=== PATIENT | male | born 1980 | race Hispanic/Latino ===

== ENCOUNTER 2020-09-01 14:13 | Inpatient (IN) | payer OTHER ==
--- NOTE | 2020-09-01 15:00 | Emergency Department Report ---
<JEANETTE LE - Last Filed: 09/01/20 19:41> ED General Adult HPI - General Chief complaint: Headache Stated complaint: DETOX Time Seen by Provider: 09/01/20 14:55 Source: patient Mode of arrival: Ambulatory Limitations: No Limitations - History of Present Illness Initial comments: pt is a 40 yo male who presents to the ED for medical clearance for a detox facility at [facility]. he denies any symptoms at at currently. he denies any n/v, fever, cough, sob, CP, no abd pain. states he needs detox from cocaine and alcohol. he states he used cocaine and alcohol this morning at 2 AM. states he has been to detox facility in the past. he denies any SI, HI, hallucinations. PMHx nephrolithiasis. no allergies to meds. - Related Data Home Medications Medication Instructions Recorded Confirmed Last Taken No Known Home Medications [No 09/02/20 09/02/20 Unknown Reported Home Medications] Allergies Allergy/AdvReac Type Severity Reaction Status Date / Time morphine Allergy Hives Verified 09/01/20 21:50 ED Review of Systems Comment: All other systems reviewed and negative ED Past Medical Hx - Past Medical History Previous Medical History?: Yes Hx Liver Disease: Yes Hx Kidney Stones: Yes - Surgical History Past Surgical History?: Yes Additional Surgical History: HERNIA, TITAINUM IN LOWER JAW, KIDNEY STONES - Medications Home Medications: Home Medications Medication Instructions Recorded Confirmed Last Taken Type No Known Home Medications [No 09/02/20 09/02/20 Unknown History Reported Home Medications] ED Physical Exam - General Limitations: No Limitations General appearance: alert, in no apparent distress - Head Head exam: Present: atraumatic, normocephalic - Eye Eye exam: Present: normal appearance - ENT ENT exam: Present: mucous membranes moist - Respiratory Respiratory exam: Present: normal lung sounds bilaterally. Absent: respiratory distress, wheezes, rales, rhonchi, stridor, chest wall tenderness, accessory muscle use, decreased breath sounds, prolonged expiratory - Cardiovascular Cardiovascular Exam: Present: regular rate, normal rhythm, normal heart sounds. Absent: systolic murmur, diastolic murmur, rubs, gallop - Neurological Exam Neurological exam: Present: alert, oriented X3 - Psychiatric Psychiatric exam: Present: normal affect, normal mood - Skin Skin exam: Present: warm, dry, intact ED Medical Decision Making - Lab Data Result diagrams: 09/01/20 15:23 09/01/20 15:23 - Medical Decision Making pt signed out to Maylin Aaron PA-C pending CT abd pelvis results and treatment ED Disposition Clinical Impression: Acute pyelonephritis, Hydronephrosis with renal calculous obstruction, Sepsis due to urinary tract infection, Acute left flank pain Disposition: OP ADMIT IP TO THIS HOSP Condition: Critical <MAYLIN AARON - Last Filed: 09/01/20 21:41> ED General Adult HPI - History of Present Illness Initial comments: I assumed care of the patient from my colleague Ms. Jeanette Le PA-C. Briefly the patient is a 40-year-old white male with a history of chronic recurrent kidney stones, chronic substance abuse who presented to the ED for medical clearance after presenting himself earlier the [facility] for detox from cocaine abuse, and was referred to the ED for medical clearance. Patient also complains of left flank pain and "dark urine" for the last 1 week intermittently. ED Medical Decision Making - Lab Data Result diagrams: 09/01/20 15:23 09/01/20 15:23 - Radiology Data Radiology results: report reviewed, [place] [address] Cat Scan Report Signed Patient: CHRISTIANO BRANDON MR#: [id number] 56 : 1980 Acct:[id number] Age/Sex: 40 / M ADM Date: 09/01/20 Loc: ED Attending Dr: Ordering Physician: GAGAN LOMBARDI Date of Service: 09/01/20 Procedure(s): CT abdomen pelvis wo con Accession Number(s): [id number] cc: GAGAN LOMBARDI CT ABDOMEN AND PELVIS WITHOUT CONTRAST INDICATION: hematuria, leukocytosis. TECHNIQUE: Axial CT images were obtained through the abdomen and pelvis without IV contrast. All CT scans at this location are performed using CT dose reduction for ALARA by means of automated exposure control. COMPARISON: None available. FINDINGS: LOWER CHEST: No significant abnormality. LIVER: Moderate decreased attenuation characteristic for steatosis with several small subcentimeter hypodense lesions likely representing cysts GALLBLADDER: No significant abnormality. BILE DUCTS: No significant abnormality. PANCREAS: No significant abnormality. SPLEEN: No significant abnormality. ADRENALS: No significant abnormality. RIGHT KIDNEY and URETER: Nonobstructing 2 mm right intrarenal stone. LEFT KIDNEY and URETER: Nonobstructing 7 mm left UPJ stone with mild to moderate hydronephrosis. 7 nonobstructing left intrarenal stones, largest of which measures 6 mm image 76. STOMACH and SMALL BOWEL: No significant abnormality. COLON: No significant abnormality. APPENDIX: No significant abnormality. PERITONEUM: No free fluid. No free air. No fluid collection. LYMPH NODES: No significant adenopathy. AORTA and ARTERIES: No significant abnormality. IVC and VEINS: No significant abnormality. URINARY BLADDER: No significant abnormality. REPRODUCTIVE ORGANS: No significant abnormality. ADDITIONAL FINDINGS: Small fat-containing left inguinal hernia. 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 Obstructing 7 mm left UPJ stone with moderate left hydronephrosis 2. Bilateral nephrolithiasis 3. Small fat-containing left inguinal hernia 4. Moderate hepatic steatosis Signer Name: Raza Hicks MD Signed: 09/01/2020 7:38 PM Workstation Name: [id number] Transcribed By: TL Dictated By: Raza Hicks MD Electronically Authenticated By: Raza Hicks MD Signed Date/Time: 09/01/201937 DD/ 33 TD/TT: - Medical Decision Making I assumed care of the patient from my colleague Ms. Jeanette Le PA-C. Briefly the patient is a 40-year-old white male with a history of chronic recurrent kidney stones, chronic substance abuse who presented to the ED for medical clearance after presenting himself earlier the [facility] for detox from cocaine abuse, and was referred to the ED for medical clearance. Patient also complains of left flank pain and "dark urine" for the last 1 week intermittently. In the ED, patient is alert and oriented x3 and is not in distress but appears to be in mild pain. Lab test results were reviewed and showed acute leukocytosis of 20,100, and urinalysis was significant for large hematuria and UTI, and positive for cocaine abuse. The rest of the lab test results are nonactionable. Patient received normal saline 1 L IV bolus initially x1, additionally patient also received another 1 L normal saline IV bolus. Patient was treated for pain with Toradol, also treated with Flomax and Rocephin. The abdomen pelvis CT scan without contrast showed obstructing 7 mm left UPJ stone with moderate left hydronephrosis, with bilateral nephrolithiasis. There is also small fat-containing left inguinal hernia and moderate hepatic steatosis. The patient's case was discussed with the ED attending physician Dr. Stanton who advised that the patient be admitted to the hospital for further evaluation as the patient will be having acute pyelonephritis and urosepsis. I therefore paged and discussed the patient's case with the hospitalist physician on-call Dr. Hackett who admitted the patient to the hospital for further evaluation. - Differential Diagnosis pyelonephritis; Urosepsis; Obstructing kidney stones; UTI ED Disposition Is pt being admited?: Yes Does the pt Need Aspirin: No Time of Disposition: 21:52 <AMARI STANTON III - Last Filed: 09/02/20 05:51> ED General Adult HPI - General PUI?: No ED Review of Systems ROS: Stated complaint: DETOX Other details as noted in HPI ED Course Vital Signs 09/01/20 09/01/20 09/02/20 14:48 22:38 00:18 Temperature 98.0 F 97.9 F Pulse Rate 92 H 71 Pulse Rate [ 71 Right Brachial] Respiratory 14 16 18 Rate Blood Pressure 124/72 Blood Pressure 117/62 [Right] O2 Sat by Pulse 95 97 97 Oximetry 09/02/20 09/02/20 01:32 04:37 Temperature 97.8 F 98.6 F Pulse Rate 71 59 L Pulse Rate [ Right Brachial] Respiratory 18 16 Rate Blood Pressure 114/58 108/60 Blood Pressure [Right] O2 Sat by Pulse 97 96 Oximetry - Reevaluation(s) Reevaluation #1: I reviewed the findings and management of this patient in real-time and I have personally seen and examined this patient and participated in the decision making for this patient with the midlevel. Patient is a 40-year-old male that presents emergency room with complaints of flank pain. Patient also presented for medical clearance for psychiatric admission. I examined patient. Patient's lung sounds are normal and clear. Patient's CV exam shows normal S1-S2. Patient has left CVA tenderness. Patient had a CT scan which shows a obstructing stone and hydronephrosis. Patient CT scan was reviewed. Patient's clinical findings are consistent with left flank pain, renal stone, septic stone and pyelonephritis. Patient found to have an elevated WBC. Patient's UA shows leukocyte esterases, WBCs and hematuria. I agree with the plan of care. I discussed all results with patient. I discussed plan of care with patient. Patient agrees with plan of care and admission. Patient to be admitted to the hospitalist service. 09/01/20 22:19 - Consultations Consultation #1: Hospitalist consulted for admission. Hospitalist to admit patient. 09/01/20 22:24 ED Medical Decision Making - Lab Data Result diagrams: 09/02/20 04:15 09/02/20 04:15 - Radiology Data Radiology results: report reviewed, image reviewed Critical Care Time: Yes Critical care time in (mins) excluding proc time.: 35 Critical care attestation.: If time is entered above; I have spent that time in minutes in the direct care of this critically ill patient, excluding procedure time. Critical Care Time: 35 MINUTES ED Disposition Is pt being admited?: Yes Does the pt Need Aspirin: No
[2020-09-01 15:56] LABS: Basophils # (Auto) 0.1 K/mm3 (0.0-0.1); Basophils % (Auto) 0.7 % (0.0-1.8); Eosinophils # (Auto) 0.1 K/mm3 (0.0-0.4); Eosinophils % (Auto) 0.5 % (0.0-4.3); Hematocrit 41.9 % (35.5-45.6); Hemoglobin 14.4 gm/dl (11.8-15.2); Lymphocytes # (Auto) 2.7 K/mm3 (1.2-5.4); Lymphocytes % (Auto) 13.2 % (13.4-35.0); Mean Corpuscular HGB Conc 34 % (32-34); Mean Corpuscular Volume 95 fl (84-94); Monocytes # (Auto) 0.8 K/mm3 (0.0-0.8); Monocytes % (Auto) 3.8 % (0.0-7.3); Platelet Count 313 K/mm3 (140-440); Red Blood Count 4.42 M/mm3 (3.65-5.03); Red Cell Distribution Width 12.7 % (13.2-15.2)
[2020-09-01 16:03] LABS: Alanine Aminotransferase 37 units/L (7-56); Albumin 4.5 g/dL (3.9-5); BUN/Creatinine Ratio 13; Blood Urea Nitrogen 16 mg/dL (9-20); Calcium 9.7 mg/dL (8.4-10.2); Hemolysis Index 15
[2020-09-01 17:11] LABS: Bilirubin,Urine NEG (Negative); Blood,Urine LG (Negative); Color,Urine Amber (Yellow); Mucus,Urine 3+ /HPF; Sperm,Urine FEW /HPF (NP)
[2020-09-01 17:34] LABS: Amphetamine Screen,Urine PRESUMPTIVE NEGATIVE; Benzodiazepines Screen,Urine PRESUMPTIVE NEGATIVE; Cannabinoid Screen,Urine PRESUMPTIVE NEGATIVE; Cocaine Screen,Urine PRESUMPTIVE POSITIVE; Methadone Screen,Urine PRESUMPTIVE NEGATIVE; Opiate Screen,Urine PRESUMPTIVE NEGATIVE
--- NOTE | 2020-09-01 19:43 | Cat Scan Report ---
CT ABDOMEN AND PELVIS WITHOUT CONTRAST INDICATION: hematuria, leukocytosis. TECHNIQUE: Axial CT images were obtained through the abdomen and pelvis without IV contrast. All CT scans at [facility] are performed using CT dose reduction for ALARA by means of automated exposure control. COMPARISON: None available. FINDINGS: LOWER CHEST: No significant abnormality. LIVER: Moderate decreased attenuation characteristic for steatosis with several small subcentimeter h ypodense lesions likely representing cysts GALLBLADDER: No significant abnormality. BILE DUCTS: No significant abnormality. PANCREAS: No significant abnormality. SPLEEN: No significant abnormality. ADRENALS: No significant abnormality. RIGHT KIDNEY and URETER: Nonobstructing 2 mm right intrarenal stone. LEFT KIDNEY and URETER: Nonobstructing 7 mm left UPJ stone with mild to moderate hydronephrosis. 7 no nobstructing left intrarenal stones, largest of which measures 6 mm image 76. STOMACH and SMALL BOWEL: No significant abnormality. COLON: No significant abnormality. APPENDIX: No significant abnormality. PERITONEUM: No free fluid. No free air. No fluid collection. LYMPH NODES: No significant adenopathy. AORTA and ARTERIES: No significant abnormality. IVC and VEINS: No significant abnormality. URINARY BLADDER: No significant abnormality. REPRODUCTIVE ORGANS: No significant abnormality. ADDITIONAL FINDINGS: Small fat-containing left inguinal hernia. 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 Obstructing 7 mm left UPJ stone with moderate left hydronephrosis 2. Bilateral nephrolithiasis 3. Small fat-containing left inguinal hernia 4. Moderate hepatic steatosis Signer Name: Raza Hicsk MD Signed: 09/01/2020 7:38 PM Workstation Name: [id number]
[2020-09-01] MEDS ORDERED: cefTRIAXone/NS 1 GM/50 ML 1 GM/50 ML BAG IV ONE (20:52)
[2020-09-01] MEDS ORDERED: SODIUM CHLORIDE 0.9% 1000 ML 1,000 ML IV ONE (20:52)
[2020-09-01] MEDS ORDERED: KETOROLAC 30 MG/1 ML INJ IV ONE (20:53)
[2020-09-01] MEDS ORDERED: TAMSULOSIN 0.4 MG CAP PO ONE (20:53)
[2020-09-01] MEDS ORDERED: ONDANSETRON 4 MG/2 ML INJ IV PRN ×2 (21:59→22:44)
[2020-09-01] MEDS ORDERED: ACETAMINOPHEN 325 MG TAB PO PRN ×3 (21:59→22:48)
[2020-09-01] MEDS ORDERED: MORPHINE 2 MG/1 ML INJ IV PRN (22:44)
--- NOTE | 2020-09-01 23:08 | History and Physical Report ---
History of Present Illness Date of examination: 09/01/20 Date of admission: 09/01/20 21:59 Chief complaint: Left flank pain History of present illness: Patient is a 40-year-old white male with history of cocaine use initially went to [facility] for detoxification, however he was sent to ED for medical clearance as he was also complaining of left flank pain. Upon further work-up with CT scan of the abdomen and pelvis, he was noted to have bilateral nephr olithiasis and left ureteropelvic junction stone with moderate hydronephrosis and hematuria and he is being admitted for further management. Patient denies any fever or chills. He denies any dysuria but does complain of dark urine. He denies any chest pain or shortness of breath Past History Past Medical History: No medical history Past Surgical History: No surgical history Social history: smoking, other (Cocaine use). denies: IV drug use Family history: hypertension (Mother) Medications and Allergies Allergies Allergy/AdvReac Type Severity Reaction Status Date / Time morphine Allergy Hives Verified 09/01/20 21:50 Active Meds: Active Medications Acetaminophen (Tylenol) 650 mg PO Q4H PRN PRN Reason: Pain MILD(1-3)/Fever >100.5/WELLS Hydromorphone HCl (Dilaudid) 0.25 mg IV Q4H PRN PRN Reason: Pain, Moderate (4-6) Sodium Chloride (Nacl 0.9% 1000 Ml) 1,000 mls @ 125 mls/hr IV DIRECT JOSE ANTONIO Ceftriaxone Sodium (Rocephin/Ns 1 Gm/50 Ml) 1 gm in 50 mls @ 100 mls/hr IV Q24HR JOSE ANTONIO; Protocol Ondansetron HCl (Zofran) 4 mg IV Q8H PRN PRN Reason: Nausea And Vomiting Ondansetron HCl (Zofran) 4 mg IV Q8H PRN PRN Reason: Nausea And Vomiting Oxycodone/Acetaminophen (Percocet 5/325) 1 tab PO Q6H PRN PRN Reason: Pain, Moderate (4-6) Sodium Chloride (Sodium Chloride Flush Syringe 10 Ml) 10 ml IV BID JOSE ANTONIO Sodium Chloride (Sodium Chloride Flush Syringe 10 Ml) 10 ml IV PRN PRN PRN Reason: LINE FLUSH Sodium Chloride (Sodium Chloride Flush Syringe 10 Ml) 10 ml IV BID JOSE ANTONIO Sodium Chloride (Sodium Chloride Flush Syringe 10 Ml) 10 ml IV PRN PRN PRN Reason: LINE FLUSH Review of Systems Constitutional: no weight loss, no fever, no chills, no fatigue, no weakness Ears, nose, mouth and throat: no ear pain, no sore throat, no headache Cardiovascular: no chest pain, no syncope, no shortness of breath, no high blood pressure Respiratory: no cough, no shortness of breath Gastrointestinal: diarrhea (Had 2 or 3 bowel movements this morning), no abdominal pain, no nausea, no vomiting, no hematemesis, no BRBPR, no melena Genitourinary Male: no dysuria, no hematuria Rectal: no pain Musculoskeletal: no neck stiffness Integumentary: no rash Psychiatric: no anxiety, no depression Exam - Constitutional Vitals: Temp Pulse Resp BP Pulse Ox 97.9 F 71 16 117/62 97 09/01/20 22:38 09/01/20 22:38 09/01/20 22:38 09/01/20 22:38 09/01/20 22:38 General appearance: Present: no acute distress, well-nourished - EENT Eyes: Present: PERRL, EOM intact ENT: hearing intact, clear oral mucosa - Neck Neck: Present: supple, normal ROM. Absent: masses or JVD - Respiratory Respiratory effort: normal Respiratory: bilateral: CTA - Cardiovascular Rhythm: regular Heart Sounds: Present: S1 & S2 - Extremities Extremities: No edema - Abdominal General gastrointestinal: Present: soft, tender (Mildly tender in the left mid a bdomen), non-distended Male genitourinary: Present: deferred - Rectal Rectal Exam: deferred - Integumentary Integumentary: Present: clear - Musculoskeletal Musculoskeletal: strength equal bilaterally, other (Left flank tenderness) - Psychiatric Psychiatric: appropriate mood/affect - Neurologic Neurologic: no focal deficits Results - Labs CBC & Chem 7: 09/01/20 15:23 09/01/20 15:23 Labs: Abnormal lab results 09/01/20 09/01/20 09/01/20 Range/Units 15:23 15:23 15:23 WBC 20.1 H (4.5-11.0) K/mm3 MCV 95 H (84-94) fl MCH 33 H (28-32) pg RDW 12.7 L (13.2-15.2) % Lymph % (Auto) 13.2 L (13.4-35.0) % Seg Neutrophils % 81.8 H (40.0-70.0) % Seg Neutrophils # 16.5 H (1.8-7.7) K/mm3 Glucose 113 H (75-100) mg/dL Magnesium (1.7-2.3) mg/dL Total Creatine Kinase (55-170) units/L Urine WBC (Auto) (0.0-6.0) /HPF Salicylates < 0.3 L (2.8-20.0) mg/dL Acetaminophen (10.0-30.0) ug/mL 09/01/20 09/01/20 09/01/20 Range/Units 15:23 15:23 16:28 WBC (4.5-11.0) K/mm3 MCV (84-94) fl MCH (28-32) pg RDW (13.2-15.2) % Lymph % (Auto) (13.4-35.0) % Seg Neutrophils % (40.0-70.0) % Seg Neutrophils # (1.8-7.7) K/mm3 Glucose (75-100) mg/dL Magnesium 2.40 H (1.7-2.3) mg/dL Total Creatine Kinase 394 H (55-170) units/L Urine WBC (Auto) 18.0 H (0.0-6.0) /HPF Salicylates (2.8-20.0) mg/dL Acetaminophen 5.0 L (10.0-30.0) ug/mL Assessment and Plan - Patient Problems (1) Neutrophilic leukocytosis Current Visit: Yes Status: Acute Plan to address problem: Secondary to UTI/pyelonephritis No evidence of sepsis Continue IV antibiotic Blood and urine cultures obtained Monitor CBC (2) Acute left flank pain Current Visit: Yes Status: Acute Plan to address problem: Secondary to nephrolithiasis Rule out acute pyelonephritis CT scan of the abdomen and pelvis results reviewed Patient has bilateral nephrolithiasis with moderate left hydronephrosis IV fluids with normal saline Pain control IV antibiotics (3) Acute pyelonephritis Current Visit: Yes Status: Acute Plan to address problem: UA results reviewed Urine cultures obtained Continue IV ceftriaxone CT scan of the abdomen and pelvis results reviewed It does not show any perinephric stranding (4) Hydronephrosis with renal calculous obstruction Current Visit: Yes Status: Acute Plan to address problem: IV fluids 2/2 Left ureteropelvic junction stone Pain control Please consult urology in a.m.
[2020-09-02] MEDS: HYDROmorphone 1 MG/1 ML INJ IV PRN ×2 (00:33→04:39)
[2020-09-02] MEDS: SODIUM CHLORIDE 0.9% 1000 ML 1,000 ML IV SCH ×2 (01:48→09:54)
[2020-09-02 05:23] LABS: Basophils % (Auto) 0.3 % (0.0-1.8); Eosinophils # (Auto) 0.4 K/mm3 (0.0-0.4); Eosinophils % (Auto) 3.9 % (0.0-4.3); Hematocrit 37.4 % (35.5-45.6); Lymphocytes # (Auto) 3.1 K/mm3 (1.2-5.4); Lymphocytes % (Auto) 32.6 % (13.4-35.0); Mean Corpuscular HGB Conc 35 % (32-34); Mean Corpuscular Volume 94 fl (84-94); Monocytes # (Auto) 0.6 K/mm3 (0.0-0.8); Monocytes % (Auto) 6.4 % (0.0-7.3); Platelet Count 248 K/mm3 (140-440); Red Blood Count 3.96 M/mm3 (3.65-5.03); Red Cell Distribution Width 12.8 % (13.2-15.2)
[2020-09-02 05:37] LABS: BUN/Creatinine Ratio 14; Blood Urea Nitrogen 15 mg/dL (9-20); Calcium 8.6 mg/dL (8.4-10.2); Hemolysis Index 9
[2020-09-02] MEDS: cefTRIAXone/NS 1 GM/50 ML 1 GM/50 ML BAG IV SCH (09:57)
[2020-09-02] MEDS: oxyCODONE /ACETAMINOPHEN 5-325MG TAB PO PRN ×2 (10:54→20:24)
--- NOTE | 2020-09-02 12:44 | Progress Note ---
Assessment and Plan Assessment and plan: -- Neutrophilic leukocytosis Current Visit: Yes Status: Acute Plan to address problem: Secondary to UTI/pyelonephritis No evidence of sepsis Continue IV antibiotic Blood and urine cultures obtained Monitor CBC --Acute left flank pain Current Visit: Yes Status: Acute Plan to address problem: Secondary to nephrolithiasis Rule out acute pyelonephritis CT scan of the abdomen and pelvis results reviewed Patient has bilateral nephrolithiasis with moderate left hydronephrosis IV fluids with normal saline Pain control IV antibiotics -- Acute pyelonephritis Current Visit: Yes Status: Acute Plan to address problem: UA results reviewed Urine cultures obtained Continue IV ceftriaxone CT scan of the abdomen and pelvis results reviewed It does not show any perinephric stranding --Hydronephrosis with renal calculous obstruction Current Visit: Yes Status: Acute Plan to address problem: IV fluids 2/2 Left ureteropelvic junction stone Pain control Please consult urology in a.m. Hospitalist Physical - Constitutional Vitals: Temp Pulse Resp BP Pulse Ox 98.6 F 59 L 16 108/60 96 09/02/20 04:37 09/02/20 04:37 09/02/20 04:37 09/02/20 04:37 09/02/20 04:37 General appearance: Present: no acute distress, well-nourished Results - Labs CBC & Chem 7: 09/02/20 04:15 09/02/20 04:15 Labs: Laboratory Last Values WBC 9.5 K/mm3 (4.5-11.0) 09/02/20 04:15 RBC 3.96 M/mm3 (3.65-5.03) 09/02/20 04:15 Hgb 13.0 gm/dl (11.8-15.2) 09/02/20 04:15 Hct 37.4 % (35.5-45.6) 09/02/20 04:15 MCV 94 fl (84-94) 09/02/20 04:15 MCH 33 pg (28-32) H 09/02/20 04:15 MCHC 35 % (32-34) H 09/02/20 04:15 RDW 12.8 % (13.2-15.2) L 09/02/20 04:15 Plt Count 248 K/mm3 (140-440) 09/02/20 04:15 Lymph % (Auto) 32.6 % (13.4-35.0) 09/02/20 04:15 Cole % (Auto) 6.4 % (0.0-7.3) 09/02/20 04:15 Eos % (Auto) 3.9 % (0.0-4.3) 09/02/20 04:15 Baso % (Auto) 0.3 % (0.0-1.8) 09/02/20 04:15 Lymph # (Auto) 3.1 K/mm3 (1.2-5.4) 09/02/20 04:15 Cole # (Auto) 0.6 K/mm3 (0.0-0.8) 09/02/20 04:15 Eos # (Auto) 0.4 K/mm3 (0.0-0.4) 09/02/20 04:15 Baso # (Auto) 0.0 K/mm3 (0.0-0.1) 09/02/20 04:15 Seg Neutrophils % 56.8 % (40.0-70.0) 09/02/20 04:15 Seg Neutrophils # 5.4 K/mm3 (1.8-7.7) 09/02/20 04:15 Sodium 142 mmol/L (137-145) 09/02/20 04:15 Potassium 3.7 mmol/L (3.6-5.0) 09/02/20 04:15 Chloride 108.1 mmol/L (98-107) H 09/02/20 04:15 Carbon Dioxide 26 mmol/L (22-30) 09/02/20 04:15 Anion Gap 12 mmol/L 09/02/20 04:15 BUN 15 mg/dL (9-20) 09/02/20 04:15 Creatinine 1.1 mg/dL (0.8-1.3) 09/02/20 04:15 Estimated GFR > 60 ml/min 09/02/20 04:15 BUN/Creatinine Ratio 14 % 09/02/20 04:15 Glucose 117 mg/dL (75-100) H 09/02/20 04:15 Calcium 8.6 mg/dL (8.4-10.2) 09/02/20 04:15 Magnesium 2.40 mg/dL (1.7-2.3) H 09/01/20 15:23 Total Bilirubin 0.40 mg/dL (0.1-1.2) 09/01/20 15:23 AST 26 units/L (5-40) 09/01/20 15:23 ALT 37 units/L (7-56) 09/01/20 15:23 Alkaline Phosphatase 64 units/L (35-129) 09/01/20 15:23 Total Creatine Kinase 394 units/L (55-170) H 09/01/20 15:23 Total Protein 7.4 g/dL (6.3-8.2) 09/01/20 15: Albumin 4.5 g/dL (3.9-5) 09/01/20 15: Albumin/Globulin Ratio 1.6 % 09/01/20 15:23 Urine Color Coby (Yellow) 09/01/20 16:28 Urine Turbidity Slightly-cloudy (Clear) 09/01/20 16: Urine pH 5.0 (5.0-7.0) 09/01/20 16:28 Ur Specific [place] 1.026 (1.003-1.030) 09/01/20 16:28 Urine Protein 30 mg/dl mg/dL (Negative) 09/01/20 16:28 Urine Glucose (UA) Neg mg/dL (Negative) 09/01/20 16:28 Urine Ketones Neg mg/dL (Negative) 09/01/20 16:28 Urine Blood Lg (Negative) 09/01/20 16:28 Urine Nitrite Neg (Negative) 09/01/20 16:28 Urine Bilirubin Neg (Negative) 09/01/20 16:28 Urine Urobilinogen 2.0 mg/dL (<2.0) 09/01/20 16:28 Ur Leukocyte Esterase Tr (Negative) 09/01/20 16:28 Urine WBC (Auto) 18.0 /HPF (0.0-6.0) H 09/01/20 16:28 Urine RBC (Auto) 168.0 /HPF (0.0-6.0) 09/01/20 16: U Epithel Cells (Auto) < 1.0 /HPF (0-13.0) 09/01/20 16:28 Urine Mucus 3+ /HPF 09/01/20 16:28 Urine Yeast (Budding) 1+ /HPF 09/01/20 16:28 Urine Sperm Few /HPF (ASSOCIATE PROFESSOR OF LITERATURE) 09/01/20 16:28 Salicylates < 0.3 mg/dL (2.8-20.0) L 09/01/20 15:23 Urine Opiates Screen Presumptive negative 09/01/20 16:28 Urine Methadone Screen Presumptive negative 09/01/20 16:28 Acetaminophen 5.0 ug/mL (10.0-30.0) L 09/01/20 15:23 Ur Barbiturates Screen Presumptive negative 09/01/20 16:28 Ur Phencyclidine Scrn Presumptive negative 09/01/20 16:28 Ur Amphetamines Screen Presumptive negative 09/01/20 16:28 U Benzodiazepines Scrn Presumptive negative 09/01/20 16:28 Urine Cocaine Screen Presumptive positive 09/01/20 16:28 U Marijuana (THC) Screen Presumptive negative 09/01/20 16:28 Drugs of Abuse Note Disclamer 09/01/20 16:28 Plasma/Serum Alcohol < 0.01 % (0-0.07) 09/01/20 15:23 Blood Type O POSITIVE 09/01/20 23:40 Antibody Screen Negative 09/01/20 23:40 Microbiology: Microbiology 09/01/20 21:08 Peripheral/Venous Blood Culture - Preliminary Culture in Progress 09/01/20 21:08 Peripheral/Venous Blood Culture - Preliminary Culture in Progress [place]/IV: Voiding Method Toilet IV Catheter Type [Right INT / Saline Lock Antecubital] Active Medications - Current Medications Current Medications: Generic Name Dose Route Start Last Admin Trade Name Freq PRN Reason Stop Dose Admin Acetaminophen 650 mg 09/01/20 22:44 Tylenol PO Q4H PRN Pain MILD(1-3)/Fever >100.5/WELLS Hydromorphone HCl 0.25 mg 09/01/20 22:48 09/02/20 04:39 Dilaudid IV 0.25 mg Q4H PRN Administration Pain, Moderate (4-6) Sodium Chloride 1,000 mls @ 125 mls/hr 09/01/20 22:45 09/02/20 09:54 Nacl 0.9% 1000 Ml IV 125 mls/hr DIRECT JOSE ANTONIO Administration Ceftriaxone Sodium 1 gm in 50 mls @ 100 mls/hr 09/02/20 10:00 09/02/20 09:57 Rocephin/Ns 1 Gm/50 Ml IV 100 mls/hr Q24HR JOSE ANTONIO Administration Protocol Ondansetron HCl 4 mg 09/01/20 22:44 Zofran IV Q8H PRN Nausea And Vomiting Oxycodone/Acetaminophen 1 tab 09/01/20 22:44 09/02/20 10:54 Percocet 5/325 PO 1 tab Q6H PRN Administration Pain, Moderate (4-6) Sodium Chloride 10 ml 09/02/20 10:00 09/02/20 11:47 Sodium Chloride Flush Syringe 10 Ml IV Not Given BID JOSE ANTONIO Sodium Chloride 10 ml 09/01/20 22:44 Sodium Chloride Flush Syringe 10 Ml IV PRN PRN LINE FLUSH Nutrition/Malnutrition Assess - Dietary Evaluation Nutrition/Malnutrition Findings: Nutrition Notes Start: 09/02/20 09:31 Freq: Status: Active Protocol: Document 09/02/20 09:31 SHAYY (Rec: 09/02/20 09:33 SHAYY [id number]) Co-Sign 09/02/20 09:31 MK Nutrition Notes Need for Assessment generated from: complaint adjuster Initial or Follow up Brief Note Current Diagnosis Hypertension Other Pertinent Diagnosis renal obstruction, polynephritis, hx cocaine use Current Diet Regular diet Subjective/Other 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 Chago score 21, no wounds present. 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 Nutrition Intervention Revisit per MD consult or patient Sign Off request:
--- NOTE | 2020-09-02 17:31 | Progress Note ---
Assessment and Plan - Patient Problems (1) Acute pyelonephritis Current Visit: Yes Status: Acute Plan to address problem: 09/01 urine analysis shows blood, slight leukocyte Estrace and few budding yeast Secondary to UTI/pyelonephritis No evidence of sepsis Continue IV antibiotic 09/01 blood and urine cultures obtained Monitor CBC 09/01 CT abdomen/pelvis without contrast shows obstructing 7 mm left UPJ stone with moderate left hydronephrosis, bilateral nephrolithiasis, small fat- containing left inguinal hernia and moderate hepatic steatosis (2) Hydronephrosis with renal calculous obstruction Current Visit: Yes Status: Acute Plan to address problem: IV fluids 2/2 Left ureteropelvic junction stone As needed analgesia Urology consulted Patient n.p.o. after midnight on 09/03 for possible urology intervention 09/01 CT abdomen/pelvis without contrast shows obstructing 7 mm left UPJ stone with moderate left hydronephrosis, bilateral nephrolithiasis, small fat- containing left inguinal hernia and moderate hepatic steatosis (3) Neutrophilic leukocytosis Current Visit: Yes Status: Acute Plan to address problem: Presented with WBC 20.1 09/02 WBC 9.5 Trend CBC Antibiotic therapy (4) DVT prophylaxis Current Visit: Yes Status: Acute Plan to address problem: SCDs to bilateral LE while in bed Heparin subcu, holding for possible urology intervention tomorrow History Interval history: Patient is a 40-year-old white male with history of cocaine use initially went to [facility] for detoxification, however he was sent to ED for medical clearance as he was also complaining of left flank pain on 09/01. Upon further work-up with CT scan of the abdomen and pelvis, he was noted to have bilateral nephrolithiasis and left ureteropelvic junction stone with moderate hydronephrosis and hematuria and he is being admitted for further management. This morning nephrology was consulted. No acute events reported overnight. Patient denies any chest pain, nausea or vomiting or left flank pain. He states that he feels much better now. Patient admitted to last cocaine use on 09/01 in the morning. We will monitor for cocaine withdrawal symptoms. Hospitalist Physical - Constitutional Vitals: Temp Pulse Resp BP Pulse Ox 97.9 F 54 L 16 122/60 94 09/02/20 15:47 09/02/20 15:47 09/02/20 15:47 09/02/20 15:47 09/02/20 15:47 General appearance: Present: no acute distress, well-nourished - EENT Eyes: Present: PERRL, EOM intact ENT: hearing intact, poor dentition - Neck Neck: Present: supple, normal ROM - Respiratory Respiratory effort: normal Respiratory: bilateral: CTA - Cardiovascular Rhythm: regular Heart Sounds: Present: S1 & S2. Absent: systolic murmur, diastolic murmur - Extremities Extremities: no ischemia, pulses intact, pulses symmetrical, No edema, normal temperature, normal color, Full ROM Peripheral Pulses: within normal limits - Abdominal General gastrointestinal: soft, non-tender, non-distended, normal bowel sounds - Integumentary Integumentary: Present: clear, warm, dry - Psychiatric Psychiatric: appropriate mood/affect, cooperative - Neurologic Neurologic: CNII-XII intact, no focal deficits, moves all extremities Results - Labs CBC & Chem 7: 09/02/20 04:15 09/02/20 04:15 Labs: Laboratory Last Values WBC 9.5 K/mm3 (4.5-11.0) 09/02/20 04:15 RBC 3.96 M/mm3 (3.65-5.03) 09/02/20 04:15 Hgb 13.0 gm/dl (11.8-15.2) 09/02/20 04:15 Hct 37.4 % (35.5-45.6) 09/02/20 04:15 MCV 94 fl (84-94) 09/02/20 04:15 MCH 33 pg (28-32) H 09/02/20 04:15 MCHC 35 % (32-34) H 09/02/20 04:15 RDW 12.8 % (13.2-15.2) L 09/02/20 04:15 Plt Count 248 K/mm3 (140-440) 09/02/20 04:15 Lymph % (Auto) 32.6 % (13.4-35.0) 09/02/20 04:15 Walsh % (Auto) 6.4 % (0.0-7.3) 09/02/20 04:15 Eos % (Auto) 3.9 % (0.0-4.3) 09/02/20 04:15 Baso % (Auto) 0.3 % (0.0-1.8) 09/02/20 04:15 Lymph # (Auto) 3.1 K/mm3 (1.2-5.4) 09/02/20 04:15 Walsh # (Auto) 0.6 K/mm3 (0.0-0.8) 09/02/20 04:15 Eos # (Auto) 0.4 K/mm3 (0.0-0.4) 09/02/20 04:15 Baso # (Auto) 0.0 K/mm3 (0.0-0.1) 09/02/20 04:15 Seg Neutrophils % 56.8 % (40.0-70.0) 09/02/20 04:15 Seg Neutrophils # 5.4 K/mm3 (1.8-7.7) 09/02/20 04:15 Sodium 142 mmol/L (137-145) 09/02/20 04:15 Potassium 3.7 mmol/L (3.6-5.0) 09/02/20 04:15 Chloride 108.1 mmol/L (98-107) H 09/02/20 04:15 Carbon Dioxide 26 mmol/L (22-30) 09/02/20 04:15 Anion Gap 12 mmol/L 09/02/20 04:15 BUN 15 mg/dL (9-20) 09/02/20 04:15 Creatinine 1.1 mg/dL (0.8-1.3) 09/02/20 04:15 Estimated GFR > 60 ml/min 09/02/20 04:15 BUN/Creatinine Ratio 14 % 09/02/20 04:15 Glucose 117 mg/dL (75-100) H 09/02/20 04:15 Calcium 8.6 mg/dL (8.4-10.2) 09/02/20 04:15 Magnesium 2.40 mg/dL (1.7-2.3) H 09/01/20 15:23 Total Bilirubin 0.40 mg/dL (0.1-1.2) 09/01/20 15:23 AST 26 units/L (5-40) 09/01/20 15:23 ALT 37 units/L (7-56) 09/01/20 15:23 Alkaline Phosphatase 64 units/L (35-129) 09/01/20 15:23 Total Creatine Kinase 394 units/L (55-170) H 09/01/20 15:23 Total Protein 7.4 g/dL (6.3-8.2) 09/01/20: Albumin 4.5 g/dL (3.9-5) 09/01/20: Albumin/Globulin Ratio 1.6 % 09/01/20 15: Urine Color Coby (Yellow) 09/01/20 16: Urine Turbidity Slightly-cloudy (Clear) 09/01/20 16: Urine pH 5.0 (5.0-7.0) 09/01/20 16: Ur Specific [place] 1.026 (1.003-1.030) 09/01/20 16: Urine Protein 30 mg/dl mg/dL (Negative) 09/01/20 16: Urine Glucose (UA) Neg mg/dL (Negative) 09/01/20 16: Urine Ketones Neg mg/dL (Negative) 09/01/20 16:28 Urine Blood Lg (Negative) 09/01/20 16: Urine Nitrite Neg (Negative) 09/01/20 16: Urine Bilirubin Neg (Negative) 09/01/20 16: Urine Urobilinogen 2.0 mg/dL (<2.0) 09/01/20 16:28 Ur Leukocyte Esterase Tr (Negative) 09/01/20 16: Urine WBC (Auto) 18.0 /HPF (0.0-6.0) H 09/01/20 16: Urine RBC (Auto) 168.0 /HPF (0.0-6.0) 09/01/20 16: U Epithel Cells (Auto) < 1.0 /HPF (0-13.0) 09/01/20 16: Urine Mucus 3+ /HPF 09/01/20 16: Urine Yeast (Budding) 1+ /HPF 09/01/20 16: Urine Sperm Few /HPF (MORNING SHOW HOST) 09/01/20 16: Salicylates < 0.3 mg/dL (2.8-20.0) L 09/01/20 15:23 Urine Opiates Screen Presumptive negative 09/01/20 16: Urine Methadone Screen Presumptive negative 09/01/20 16: Acetaminophen 5.0 ug/mL (10.0-30.0) L 09/01/20 15: Ur Barbiturates Screen Presumptive negative 09/01/20 16:28 Ur Phencyclidine Scrn Presumptive negative 09/01/20 16:28 Ur Amphetamines Screen Presumptive negative 09/01/20 16:28 U Benzodiazepines Scrn Presumptive negative 09/01/20 16:28 Urine Cocaine Screen Presumptive positive 09/01/20 16:28 U Marijuana (THC) Screen Presumptive negative 09/01/20 16:28 Drugs of Abuse Note Disclamer 09/01/20 16:28 Plasma/Serum Alcohol < 0.01 % (0-0.07) 09/01/20 15:23 Blood Type O POSITIVE 09/01/20 23:40 Antibody Screen Negative 09/01/20 23:40 Microbiology: Microbiology 09/01/20 16:28 Urine,Clean Catch Urine Culture - Preliminary NO GROWTH AFTER 24 HOURS 09/01/20 21:08 Peripheral/Venous Blood Culture - Preliminary Culture in Progress 09/01/20 21:08 Peripheral/Venous Blood Culture - Preliminary Culture in Progress [place]/IV: Voiding Method Toilet IV Catheter Type [Right INT / Saline Lock Antecubital] Active Medications - Current Medications Current Medications: Generic Name Dose Route Start Last Admin Trade Name Freq PRN Reason Stop Dose Admin Acetaminophen 650 mg 09/01/20 22:44 Tylenol PO Q4H PRN Pain MILD(1-3)/Fever >100.5/WELLS Hydromorphone HCl 0.25 mg 09/01/20 22:48 09/02/20 04:39 Dilaudid IV 0.25 mg Q4H PRN Administration Pain, Moderate (4-6) Sodium Chloride 1,000 mls @ 125 mls/hr 09/01/20 22:45 09/02/20 09:54 Nacl 0.9% 1000 Ml IV 125 mls/hr DIRECT JOSE ANTONIO Administration Ceftriaxone Sodium 1 gm in 50 mls @ 100 mls/hr 09/02/20 10:00 09/02/20 09:57 Rocephin/Ns 1 Gm/50 Ml IV 100 mls/hr Q24HR JOSE ANTONIO Administration Protocol Ondansetron HCl 4 mg 09/01/20 22:44 Zofran IV Q8H PRN Nausea And Vomiting Oxycodone/Acetaminophen 1 tab 09/01/20 22:44 09/02/20 10:54 Percocet 5/325 PO 1 tab Q6H PRN Administration Pain, Moderate (4-6) Sodium Chloride 10 ml 09/02/20 10:00 09/02/20 11:47 Sodium Chloride Flush Syringe 10 Ml IV Not Given BID JOSE ANTONIO Sodium Chloride 10 ml 09/01/20 22:44 Sodium Chloride Flush Syringe 10 Ml IV PRN PRN LINE FLUSH Nutrition/Malnutrition Assess - Dietary Evaluation Nutrition/Malnutrition Findings: Nutrition Notes Start: 09/02/20 09:31 Freq: Status: Active Protocol: Document 09/02/20 09:31 SHAYY (Rec: 09/02/20 09:33 SHAYY [id number]) Co-Sign 09/02/20 09:31 MK Nutrition Notes 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 Chago score 21, no wounds present. 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 Nutrition Intervention Revisit per MD consult or patient Sign Off request:
[2020-09-03] MEDS: SODIUM CHLORIDE 0.9% 1000 ML 1,000 ML IV SCH (04:00)
[2020-09-03] MEDS: HYDROmorphone 1 MG/1 ML INJ IV PRN (06:38)
[2020-09-03] MEDS: cefTRIAXone/NS 1 GM/50 ML 1 GM/50 ML BAG IV SCH (09:24)
[2020-09-03] MEDS ORDERED: LACTATED RINGERS 1,000 ML ONE (11:38)
[2020-09-03] MEDS ORDERED: LACTATED RINGERS 1,000 ML IV SCH (12:00)
[2020-09-03] MEDS ORDERED: ONDANSETRON 4 MG/2 ML INJ IV PRN (12:17)
[2020-09-03] MEDS ORDERED: HYDROmorphone 1 MG/1 ML INJ IV PRN (12:17)
--- NOTE | 2020-09-03 12:17 | Anesthesia Consultation ---
Anesthesia Consult and Med Hx Date of service: 09/03/20 - Airway Anesthetic Teeth Evaluation: Poor ROM Head & Neck: Adequate Mental/Hyoid Distance: Adequate Mallampati Class: Class I Intubation Access Assessment: Good - Pulmonary Exam CTA: Yes - Cardiac Exam Cardiac Exam: RRR - Pre-Operative Health Status ASA Pre-Surgery Classification: ASA3 Proposed Anesthetic Plan: General - Pulmonary Hx Respiratory Symptoms: No - Cardiovascular System Hx Hypertension: No Hx Heart Attack/AMI: No Hx Cardia Arrhythmia: No - Central Nervous System CVA: No Hx Psychiatric Problems: Yes (Depression) - Gastrointestinal Hx Gastroesophageal Reflux Disease: No - Endocrine Hx Renal Disease: No (pyelonephritis, hydronephrosis; renal function normal) Hx Liver Disease: No Hx Insulin Dependent Diabetes: No Hx Non-Insulin Dependent Diabetes: No Hx Thyroid Disease: No - Other Systems Hx Substance Use: Yes (cocaine, last use 09/01) Hx Obesity: No (BMI 32) - Additional Comments Anesthesia Medical History Comments: No hx anesthetic complications.
--- NOTE | 2020-09-03 12:17 | Anesthesia Day of Surgery ---
Anesthesia Day of Surgery - Day of Surgery Patient Examined: Yes Patient H&P Reviewed: Yes Patient is NPO: Yes
[2020-09-03] MEDS ORDERED: propofoL 200 MG/20 ML VIAL IV ONE (12:33)
[2020-09-03] MEDS ORDERED: LIDOCAINE MPF (2%) 20 MG/1 ML VIAL 5 ML ONE (12:33)
[2020-09-03] MEDS ORDERED: MIDAZOLAM 2 MG/2 ML INJ IV NR (13:00)
--- NOTE | 2020-09-03 13:02 | Consultation ---
History of Present Illness - Reason for Consult Consult date: 09/03/20 - History of Present Illness Patient is a 40-year-old white male with history of cocaine use initially went to [facility] for detoxification, however he was sent to ED for medical clearance as he was also complaining of left flank pain. Upon further work-up with CT scan of the abdomen and pelvis, he was noted to have bilateral nephrolithiasis and left 7mm ureteropelvic junction stone with moderate hydronephrosis and hematuria and he is being admitted for further management. Patient denies any fever or chills. He denies any dysuria but does complain of dark urine. He denies any chest pain or shortness of breath + hx of stones in past----?ESWL in past abd soft A/P left 7mm ureteropelvic junction stone with moderate hydronephrosis needs cysto stent, ESWL at later date Past History Past Medical History: No medical history Past Surgical History: No surgical history Social history: smoking, other (Cocaine use). denies: IV drug use Family history: hypertension (Mother) Medications and Allergies Allergies Allergy/AdvReac Type Severity Reaction Status Date / Time morphine Allergy Hives Verified 09/01/20 21:50 Home Medications Medication Instructions Recorded Confirmed Last Taken Type No Known Home Medications [No 09/02/20 09/02/20 Unknown History Reported Home Medications] Active Meds: Active Medications Acetaminophen (Tylenol) 650 mg PO Q4H PRN PRN Reason: Pain MILD(1-3)/Fever >100.5/WELLS Hydromorphone HCl (Dilaudid) 0.25 mg IV Q4H PRN PRN Reason: Pain, Moderate (4-6) Last Admin: 09/03/20 06:38 Dose: 0.25 mg Documented by: Hydromorphone HCl (Dilaudid) 0.5 mg IV Q10MIN PRN PRN Reason: Pain , Severe (7-10) Stop: 09/03/20 23:00 Sodium Chloride (Nacl 0.9% 1000 Ml) 1,000 mls @ 125 mls/hr IV DIRECT JOSE ANTONIO Last Admin: 09/03/20 04:00 Dose: 125 mls/hr Documented by: Ceftriaxone Sodium (Rocephin/Ns 1 Gm/50 Ml) 1 gm in 50 mls @ 100 mls/hr IV Q24HR JOSE ANTONIO; Protocol Last Admin: 09/03/20 09:24 Dose: 100 mls/hr Documented by: Lactated Ringer's (Lactated Ringers) 1,000 mls @ 100 mls/hr IV DIRECT JOSE ANTONIO Stop: 09/04/20 11:59 Midazolam HCl (Versed) 2 mg IV PREOP NR Stop: 09/03/20 23:59 Ondansetron HCl (Zofran) 4 mg IV Q8H PRN PRN Reason: Nausea And Vomiting Ondansetron HCl (Zofran) 4 mg IV ONCE PRN PRN Reason: Nausea And Vomiting Stop: 09/03/20 18:00 Oxycodone/Acetaminophen (Percocet 5/325) 1 tab PO Q6H PRN PRN Reason: Pain, Moderate (4-6) Last Admin: 09/02/20 20:24 Dose: 1 tab Documented by: Sodium Chloride (Sodium Chloride Flush Syringe 10 Ml) 10 ml IV BID JOSE ANTONIO Last Admin: 09/03/20 09:27 Dose: 10 ml Documented by: Sodium Chloride (Sodium Chloride Flush Syringe 10 Ml) 10 ml IV PRN PRN PRN Reason: LINE FLUSH Exam - Constitutional Vitals: Temp Pulse Resp BP Pulse Ox 98.1 F 61 20 127/71 96 09/03/20 11:35 09/03/20 11:35 09/03/20 11:35 09/03/20 11:35 09/03/20 11:35 Results - Labs CBC & Chem 7: 09/02/20 04:15 09/02/20 04:15
--- NOTE | 2020-09-03 13:04 | Post Operative Note ---
Date of procedure: 09/03/20 Pre-op diagnosis: left renal stone---7mm Post-op diagnosis: same Procedure: cysto, rpg, stent Anesthesia: GETA Surgeon: COLETTE SMITH Estimated blood loss: minimal Condition: stable Disposition: PACU (nocro & bactrim on chart, home & f/u 1-2 wks)
[2020-09-03] MEDS ORDERED: ONDANSETRON 4 MG/2 ML INJ ONE (13:13)
--- NOTE | 2020-09-03 13:56 | Fluoroscopy Report ---
FLUOROSCOPY RETROGRADE UROGRAPHY HISTORY: Left kidney stone lower pole FINDINGS: Fluoroscopy was provided by radiology during retrograde urography by the urologist. There i s normal filling of both renal collecting systems. No filling defect or abnormal dilatation is identi fied. A left ureteral stent was placed with good placement on the final image. IMPRESSION: Unremarkable retrograde pyelograms. Left ureteral stent placement. Fluoroscopy time: 26 seconds Fluoroscopic images: 6 Signer Name: Jarek Pitt Jr, MD Signed: 09/03/2020 1:52 PM Workstation Name: [id number]
--- NOTE | 2020-09-03 14:42 | Post Anesthesia Evaluation ---
- Post Anesthesia Evaluation Patient Participated: Yes Airway Patent: Yes Stable Respiratory Function: Yes Nausea/Vomiting: No Temp > 96.8F: Yes Pain Manageable: Yes Adequeate Hydration: Yes Anesthesia Complications: No
--- NOTE | 2020-09-03 15:12 | Discharge Summary ---
<NANCYCHARAN DalyDavida - Last Filed: 09/03/20 15:13> Providers - Providers Date of Admission: 09/01/20 21:59 Attending physician: SOL JUAREZ 09/02/20 07:58 Consult to Physician [CONS] Routine Comment: Consulting Provider: COLETTE GOMEZ Physician Instructions: Reason For Exam: hydronephrosis Primary care physician: ASSISTANT PROFESSOR OF COMMUNICATION Hospitalization Condition: Stable Procedures: 09/03 s/p cysto, rpg, stent by urology Hospital course: Patient is a 40-year-old white male with history of cocaine use initially went to [facility] for detoxification, however he was sent to ED for medical clearance as he was also complaining of left flank pain on 09/01. Upon further work-up with CT scan of the abdomen and pelvis, he was noted to have bilateral nephrolithiasis and left ureteropelvic junction stone with moderate hydronephrosis and hematuria and he is being admitted for further management. This morning nephrology was consulted. Patient admitted to last cocaine use on 09/01 in the morning and did not exhibit any withdrawl symtpoms while in house. Cocaine cessation strongly encouraged. Today he had a cystoscopy with stent placement. He will need to follow up with urology within 1-2 weeks of discharge. (1) Acute pyelonephritis Current Visit: Yes Status: Acute Plan to address problem: 09/01 urine analysis shows blood, slight leukocyte Estrace and few budding yeast Secondary to UTI/pyelonephritis No evidence of sepsis Will discharge on PO antibiotic therapy 09/01 blood and urine cultures NGTD 09/01 CT abdomen/pelvis without contrast shows obstructing 7 mm left UPJ stone with moderate left hydronephrosis, bilateral nephrolithiasis, small fat- containing left inguinal hernia and moderate hepatic steatosis S/p cystoscopy with stent placement and RPG We will need to follow-up with urology within 1 to 2 weeks of discharge (2) Hydronephrosis with renal calculous obstruction Current Visit: Yes Status: Acute Plan to address problem: s/p IV fluids 2/2 Left ureteropelvic junction stone Urology consulted 09/01 CT abdomen/pelvis without contrast shows obstructing 7 mm left UPJ stone with moderate left hydronephrosis, bilateral nephrolithiasis, small fat- containing left inguinal hernia and moderate hepatic steatosis S/p cystoscopy with stent placement and RPG We will need to follow-up with urology within 1 to 2 weeks of discharge (3) Neutrophilic leukocytosis Current Visit: Yes Status: resolved Plan to address problem: Presented with WBC 20.1 09/02 WBC 9.5 Disposition: DC-01 TO HOME OR SELFCARE Time spent for discharge: 35 Core Measure Documentation - Palliative Care Palliative Care/ Comfort Measures: Not Applicable - Core Measures Any of the following diagnoses?: none Exam - Constitutional Vitals: Temp Pulse Resp BP Pulse Ox 97.8 F 46 L 19 121/68 100 09/03/20 14:27 09/03/20 14:27 09/03/20 14:27 09/03/20 14:27 09/03/20 14:27 General appearance: Present: no acute distress - EENT Eyes: Present: PERRL, EOM intact ENT: hearing intact, clear oral mucosa - Neck Neck: Present: supple, normal ROM - Respiratory Respiratory effort: normal Respiratory: bilateral: CTA - Cardiovascular Rhythm: regular Heart Sounds: Present: S1 & S2. Absent: systolic murmur, diastolic murmur - Extremities Extremities: no ischemia, pulses intact, pulses symmetrical, No edema, normal temperature, normal color, Full ROM Peripheral Pulses: within normal limits - Abdominal General gastrointestinal: Present: soft, non-tender, normal bowel sounds Male genitourinary: Present: tender - Integumentary Integumentary: Present: warm, dry - Musculoskeletal Musculoskeletal: strength equal bilaterally - Psychiatric Psychiatric: appropriate mood/affect, cooperative - Neurologic Neurologic: CNII-XII intact, no focal deficits, moves all extremities Plan Activity: advance as tolerated Diet: regular Wound: per your surgeon's advice Special Instructions: smoking cessation, other (cocaine cessation) Additional Instructions: Follow-up with your primary care doctor and urology within 1 to 2 weeks of discharge. Report to nearest emergency department or contact your primary care physician if you experience worsening symptoms. You will be discharged with antibiotic therapy and as needed analgesia Follow up with: ADELIA GARCIA MD [Primary Care Provider] - 3-5 Days COLETTE GOMEZ MD [Staff Physician] - 7 Days <SOL JUAREZ - Last Filed: 09/03/20 17:17> Providers - Providers Date of Admission: 09/01/20 21:59 Date of discharge: 09/03/20 Attending physician: SOL JUAREZ 09/02/20 07:58 Consult to Physician [CONS] Routine Comment: Consulting Provider: COLETTE GOMEZ Physician Instructions: Reason For Exam: hydronephrosis Primary care physician: ASSISTANT PROFESSOR OF COMMUNICATION Exam - Constitutional Vitals: Temp Pulse Resp BP Pulse Ox 97 F L 46 L 16 121/68 100 09/03/20 16:47 09/03/20 16:47 09/03/20 16:47 09/03/20 16:47 09/03/20 16:47 Plan Additional Instructions: Urologist Dr. Gomez gave prescriptions to the patient. Bactrim DS 1 tablet twice a day x 10 days. [place] 1 tablet every 6 hours as needed for pain 25 pills
[2020-09-03 16:48] VITALS: BP 121/68
== END 2020-09-03 19:01 | disposition home or self-care (01) | DRG 661 ==
LOC: ED 14:13 → 3A 21:59
PROVIDERS: ADMIT Internal Medicine; ATTEND Internal Medicine
PROC: 0T778DZ Dilation of Left Ureter with Intraluminal Device, Via Natural or Artificial Opening Endoscopic (ICD-10-PCS; principal; 2020-09-03)
PROC: BT141ZZ Fluoroscopy of Kidneys, Ureters and Bladder using Low Osmolar Contrast (ICD-10-PCS; 2020-09-03)
DX: N13.6 Pyonephrosis (principal); D72.828 Other elevated white blood cell count; F17.200 Nicotine dependence, unspecified, uncomplicated; F14.90 Cocaine use, unspecified, uncomplicated; F32.9 Major depressive disorder, single episode, unspecified; Z87.442 Personal history of urinary calculi; Z82.49 Family history of ischemic heart disease and other diseases of the circulatory system; Z88.5 Allergy status to narcotic agent
CPT/HCPCS: 36415; 74176; 74420; 80048; 80053; 80307; 80320; 81001; 82550; 83735; 85025; 86850; 86900; 86901; 87040; 87086; 87591; 96365; 96375; 99406; G0378; G0480; J0696; J1170; J1885; J2250; J2405; J2704; J7030; J7120; Q9967

== ENCOUNTER 2020-09-16 09:41 | Day surgery (SDC) | payer OTHER ==
[~2020-09-16 09:41] MED LIST: ceFAZolin/STERILE WATER 2 GM/20 ML SYRINGE IV NR
[2020-09-16] MEDS ORDERED: LACTATED RINGERS 1,000 ML ONE (10:02)
[2020-09-16] MEDS ORDERED: HYDROmorphone 1 MG/1 ML INJ IV PRN ×2 (10:51)
[2020-09-16] MEDS ORDERED: ONDANSETRON 4 MG/2 ML INJ IV PRN (10:51)
--- NOTE | 2020-09-16 10:52 | Anesthesia Day of Surgery ---
Anesthesia Day of Surgery - Day of Surgery Patient Examined: Yes Patient H&P Reviewed: Yes Patient is NPO: Yes
--- NOTE | 2020-09-16 10:54 | Anesthesia Consultation ---
Anesthesia Consult and Med Hx Date of service: 09/16/20 - Airway Anesthetic Teeth Evaluation: Chipped (Missing) ROM Head & Neck: Adequate Mental/Hyoid Distance: Adequate Mallampati Class: Class III Intubation Access Assessment: Probably Good - Pre-Operative Health Status ASA Pre-Surgery Classification: ASA3 Proposed Anesthetic Plan: General - Pulmonary Hx Smoking: Yes (CIGARETTES 12 OR 13 PER DAY) Hx Asthma: No Hx Respiratory Symptoms: No (+2FS) COPD: No Hx Pneumonia: No Hx Sleep Apnea: No (NATY PRE SCREEN LOW RISK) - Cardiovascular System Hx Hypertension: No Hx Heart Attack/AMI: No Hx Cardia Arrhythmia: No Hx Pacemaker: No Hx Internal Defibrillator: No Hx Heart Murmur: No - Central Nervous System Hx Seizures: No CVA: No Hx Back Pain: No Hx Psychiatric Problems: Yes (Depression, bipolar, PTSD) - Gastrointestinal Hx Gastroesophageal Reflux Disease: Yes (Rare) - Endocrine Hx Renal Disease: No (pyelonephritis, hydronephrosis; renal function normal) Hx End Stage Renal Disease: No Hx Cirrhosis: No Hx Liver Disease: No Hx Insulin Dependent Diabetes: No Hx Non-Insulin Dependent Diabetes: No Hx Thyroid Disease: No - Hematic Hx Anemia: No Hx Sickle Cell Disease: No - Other Systems Hx Alcohol Use: Yes Hx Substance Use: Yes (cocaine, last use 09/01/20) Hx Cancer: No Hx Obesity: No (BMI 32)
[2020-09-16] MEDS ORDERED: MIDAZOLAM 2 MG/2 ML INJ IV NR (11:00)
[2020-09-16] MEDS ORDERED: LACTATED RINGERS 1,000 ML IV SCH (11:00)
[2020-09-16] MEDS ORDERED: propofoL 200 MG/20 ML VIAL IV ONE (11:40)
[2020-09-16] MEDS ORDERED: HYDROmorphone 1 MG/1 ML INJ ONE (11:40)
[2020-09-16] MEDS ORDERED: LIDOCAINE MPF (2%) 20 MG/1 ML VIAL 5 ML ONE (11:40)
[2020-09-16] MEDS ORDERED: ONDANSETRON 4 MG/2 ML INJ ONE (12:24)
--- NOTE | 2020-09-16 12:36 | Post Operative Note ---
Date of procedure: 09/16/20 Pre-op diagnosis: renal stone Post-op diagnosis: same Findings: as above Procedure: eswl Anesthesia: AVIS Surgeon: ESTEBAN ASIF Estimated blood loss: none Pathology: none Condition: stable Disposition: PACU
--- NOTE | 2020-09-16 12:37 | Discharge Summary ---
Short Stay Discharge Plan Activity: other (no straining ) Weight Bearing Status: Full Weight Bearing Diet: low fat, low cholesterol, low salt Special Instructions: other (inc fluids ) Follow up with: PRIMARY CARE, [Primary Care Provider] - 7 Days ESTEBAN ASIF MD [Staff Physician] - 7 Days
[2020-09-16 13:29] VITALS: BP 107/68
--- NOTE | 2020-09-16 16:02 | Post Anesthesia Evaluation ---
- Post Anesthesia Evaluation Patient Participated: Yes Airway Patent: Yes Stable Respiratory Function: Yes Nausea/Vomiting: No Temp > 96.8F: Yes Pain Manageable: Yes Adequeate Hydration: Yes Anesthesia Complications: No Block Receding Appropriately: Not Applicable Patient on Ventilator: No
--- NOTE | 2020-09-16 16:02 | Operative Report ---
PREOPERATIVE DIAGNOSIS: Ureteral obstruction and ureteral, now renal stone. POSTOPERATIVE DIAGNOSIS: Ureteral obstruction and ureteral, now renal stone. PROCEDURE: ESWL. SURGEON: Dr. Peñaloza. ANESTHESIA: General. FINDINGS: This is a gentleman who had an upper ureteral stone. It was transposed into the kidney. He has a double-J stent. He now presents for treatment. DESCRIPTION OF PROCEDURE: The patient was brought to the operating room and placed on the operating room table. Following induction of anesthesia, placed on the lithotripsy table. Stone was easily localized. It was now in the lower pole of the kidney. Stent was well seen as well. Shocks were begun at 1 kV, renal pause was carried out; 2500 shocks were given up to a maximum of 8 kV. Stone clearly broke in a couple of pieces. He may need a second-stage lithotripsy or ureteroscopy or even a percutaneous nephrolithotomy if it does not break more, but it clearly broke into pieces. He was brought to recovery room in stable condition. JOB# [id number] HARLEEN/SERENITY
== END 2020-09-16 14:00 | disposition home or self-care (01) ==
LOC: OR 09:41
PROVIDERS: ATTEND Urology
DX: N13.2 Hydronephrosis with renal and ureteral calculous obstruction (principal); Z20.828 Contact with and (suspected) exposure to other viral communicable diseases; K21.9 Gastro-esophageal reflux disease without esophagitis; F17.210 Nicotine dependence, cigarettes, uncomplicated; F31.9 Bipolar disorder, unspecified; Z88.5 Allergy status to narcotic agent; Z79.899 Other long term (current) drug therapy; Z87.440 Personal history of urinary (tract) infections; Z72.89 Other problems related to lifestyle; Z98.890 Other specified postprocedural states; Z83.3 Family history of diabetes mellitus; Z82.49 Family history of ischemic heart disease and other diseases of the circulatory system
CPT/HCPCS: 50590; J0690; J1170; J2250; J2405; J2704; J7120; U0003